=== PATIENT | male | born 1965 | race African-American/Black ===

== ENCOUNTER 2022-06-11 12:54 | Emergency (ER) | payer MEDICAID ==
[~2022-06-11] VITALS: Ht 165.1 cm; Wt 69.0 kg
[2022-06-11 17:36] LABS: CHLORIDE 102 mEq/L (98-107)
[2022-06-11 17:39] LABS: BASOPHILS % 0.5 % (0.0-2.0); EOSINOPHILS % 0.2 % (0.0-5.0); HEMATOCRIT. 50.4 % (42.0-52.0); HEMOGLOBIN. 17.4 g/dL (14.0-18.0); LYMPHOCYTES % 12.6 % (20.0-50.0); MEAN CORPUSCULAR HEMOGLOBIN 31.6 pg (28.0-32.0); MEAN CORPUSCULAR VOLUME 91.6 fL (80.0-94.0); MEAN PLATELET VOLUME 8.8 fl (7.4-10.4); MONOCYTES % 10.6 % (2.0-8.0); NEUTROPHILS % 76.1 % (40.0-76.0); PLATELET 251 x1000/uL (130-400); RED CELL DISTRIBUTION WIDTH 14.7 % (11.6-14.6)
[2022-06-11 17:47] LABS: ETHANOL BLOOD < 10 mg/dL
[2022-06-11 19:33] LABS: *AMPHETAMINES SCREEN URINE PRESUMTIVE POSITIVE (NEGATIVE); *BARBITURATES SCREEN URINE NEGATIVE (NEGATIVE); *BENZODIAZEPINES SCREEN URINE NEGATIVE (NEGATIVE); *COCAINE SCREEN URINE NEGATIVE (NEGATIVE); CANNABINOID URINE SCREEN PRESUMTIVE POSITIVE (NEGATIVE); METHADONE URINE SCREEN NEGATIVE (NEGATIVE); OPIATES URINE SCREEN NEGATIVE (NEGATIVE); PHENCYCLIDINE URINE SCREEN NEGATIVE (NEGATIVE)
[2022-06-11 20:43] VITALS: BP 145/73
== END 2022-06-11 21:11 | disposition home or self-care (01) ==
LOC: ER 12:54 → EDBD 12:54 → ER 21:11
DX: T51.0X1A Toxic effect of ethanol, accidental (unintentional), initial encounter (principal); F10.129 Alcohol abuse with intoxication, unspecified; R41.82 Altered mental status, unspecified; Y90.7 Blood alcohol level of 200-239 mg/100 ml; F19.10 Other psychoactive substance abuse, uncomplicated; Y92.488 Other paved roadways as the place of occurrence of the external cause
CPT/HCPCS: 36415; 70450; 80053; 80305; 80320; 85025; 99284; Z7610; G0480